=== PATIENT | female | born 1985 | race Caucasian/White ===

== ENCOUNTER 2016-11-22 01:02 | Inpatient (IN) ==
[2016-11-22 01:28] LABS: Bilirubin,Urine Negative (Negative); Blood,Urine Negative (Negative); Clarity,Urine Cloudy (Clear); Color,Urine Yellow (Yellow); Glucose,Urine (UA) Normal (Normal); Ketones,Urine Negative (Negative); Leukocyte Esterase,Urine Negative (Negative); Nitrite,Urine Negative (Negative); Protein,Urine Negative (Neg-Trace); Specific Gravity,Urine 1.028 (1.010-1.025); Urobilinogen,Urine Normal (Normal)
[2016-11-22 01:31] LABS: Bacteria,Urine None Seen per hpf (None-Few); Hyaline Casts,Urine None Seen per lpf (None-Few); RBC,Urine 0-3 per hpf (0-3); Squamous Epithelial Cell,Urine Many per lpf (None-Few); WBC,Urine 0-3 per hpf (0-3)
[2016-11-22 01:34] LABS: Amphetamine Screen,Urine Negative ng/mL (Cutoff=1000); Barbiturate Screen,Urine Negative ng/mL (Cutoff=200); Benzodiazepines Screen,Urine Negative ng/mL (Cutoff=200); Cannabinoid Screen,Urine Negative ng/mL (Cutoff = 50); Cocaine Screen,Urine Negative ng/mL (Cutoff= 300); Opiate Screen,Urine Negative ng/mL (Cutoff=300); Phencyclidine Screen,Urine Negative ng/mL (Cutoff=25)
[2016-11-22 01:55] LABS: Basophils # 0.1 K/mcL (0.0-0.2); Basophils % 1.2 %; Eosinophils # 0.1 K/mcL (0.0-0.6); Eosinophils % 1.8 %; Hematocrit 34.4 % (35.3-44.9); Hemoglobin 11.4 g/dL (11.5-15.4); Immature Granulocytes % 0.2 % (0-4); Lymphocytes % 33.2 %; Mean Corpuscular HGB Conc 33.1 g/dL (31.6-35.5); Mean Corpuscular Hemoglobin 29.7 pg (28.0-33.3); Mean Corpuscular Volume 89.6 fL (83.0-100.0); Mean Platelet Volume 9.5 fL (9.4-12.4); Monocytes # 0.5 K/mcL (0.0-1.3); Monocytes % 7.9 %; Neutrophils # 3.4 K/mcL (1.6-8.9); Platelet Count 169 K/mcL (140-400); Red Blood Count 3.84 M/mcL (3.82-4.97); Red Cell Distribution Width 11.5 % (11.5-14.5); Segmented Neutrophils % 55.7 %
[2016-11-22 02:11] LABS: Alanine Aminotransferase 29 Units/L (0-55); Albumin/Globulin Ratio 1.4 (1.1-2.2); Alkaline Phosphatase 106 Units/L (38-126); Aspartate Amino Transferase 28 Units/L (5-34); BUN/Creatinine Ratio 18 (6-26); Bilirubin,Direct 0.1 mg/dL (0.0-0.5); Bilirubin,Total 0.1 mg/dL (0.2-1.2); Blood Urea Nitrogen 19 mg/dL (7-20); Calcium 9.4 mg/dL (8.6-10.8); Carbon Dioxide 27 mEq/L (19-29); Chloride 107 mEq/L (98-109); Globulin 2.8 g/dL (2.4-3.5); Glucose 86 mg/dL (70-99); Osmolality,Calculated 294 (280-300); Sodium 141 mEq/L (136-145); Total Protein 6.8 g/dL (6.0-8.3); eGFR For African Americans > 60 (> 60); eGFR For Non-African Americans > 60 (> 60)
[2016-11-22 02:13] LABS: Acetaminophen < 1.0 mcg/mL (10-30); Ethanol < 10 mg/dL (0-10); Salicylate < 5.0 mg/dL (15-30)
[2016-11-22 02:31] LABS: Thyroid Stimulating Hormone 2.934 mcIU/mL (0.350-4.840)
--- NOTE | 2016-11-22 03:30 | Emergency Department Note ---
Disposition Clinical Impression: Suicidal ideation Disposition: Admitted As Inpatient Condition: Good Time of Disposition: 04:51 Psych HPI - General Chief Complaint: ED Psychiatric Symptoms Stated Complaint: SI/HI Source: patient Nursing Notes Reviewed: Yes Vital Signs Reviewed: Yes - History of Present Illness HPI Narrative: 31yoF c/o of worsening SI and depression. She describes this has been going on for quite sometime, worsening today. She states she has been seen in [facility] but states no one there wants to help her. She describes attempting to kill herself while a patient at [facility] by strangling herself with the wire from the pulse ox monitor. She was a pt of Dr. Medrano but in the past month has see Marylin Ewing in [facility] and has recently been put on Risperdal. She admits to non compliance of her medications. She denies HI, audiotroy or visual hallucinations, etoh, or drug use. - Related Data Home Medications Medication Instructions Recorded Confirmed Omeprazole [PriLOSEC] 40 mg PO DAILY 04/15/16 11/22/16 Paroxetine HCl 30 mg PO DAILY 04/15/16 11/22/16 Polyethylene Glycol 3350 [MiraLAX] 17 gm PO DAILY 04/15/16 11/22/16 Epitol 200 mg PO BID 11/22/16 HydrOXYzine Pamoate [Vistaril] 50 mg PO QID 11/22/16 11/22/16 LevETIRAcetam [Levetiracetam] 500 mg PO BID 11/22/16 11/22/16 RisperiDONE [RisperDAL] 1 mg PO DAILY 11/22/16 11/22/16 Trospium Chloride 20 mg PO BID 11/22/16 11/22/16 Allergies Allergy/AdvReac Type Severity Reaction Status Date / Time No Known Allergies Allergy Verified 07/13/16 14:29 All systems ED: reviewed and negative except as stated. Constitutional: Denies: fever, chills Respiratory: Denies: cough, dyspnea Gastrointestinal: Denies: abdominal pain, nausea, vomiting Genitourinary: Denies: dysuria Musculoskeletal: Denies: back pain Integumentary: Denies: rash Neurological: Denies: headache Psychiatric: Reports: depression, suicidal thoughts. Denies: auditory hallucinations, visual hallucinations Endocrine: Denies: fatigue Hematological/Lymphatic: Denies: easy bleeding Allergic/Immunologic: Denies: facial swelling Past Medical History - Past Medical History Medical history: Reports: seizures Psychiatric history: Reports: anxiety, bipolar, depression, panic disorder CUSTODIAL MANAGER history: Reports: bilateral tubal ligation - Social History Smoking Status: Former smoker Smokeless Tobacco Status: No Alcohol use: Reports: rarely Drug use: Reports: none Physical Exam - General Limitations: no limitations General appearance: alert, in no apparent distress, anxious - Head Head exam: normal inspection - Eye Eye exam: Absent: conjunctival injection, periorbital swelling, periorbital tenderness - ENT ENT exam: normal oropharynx, mucous membranes moist, normal external ear exam - Neck Neck exam: Present: full ROM. Absent: tenderness - Chest Chest inspection: Present: symmetric chest wall rise - Respiratory Respiratory exam: Absent: respiratory distress - Cardiovascular Cardiovascular exam: Present: regular rate, normal rhythm - Abdominal Exam Abdominal exam: Present: soft, Non-Tender - Extremities Exam Extremities exam: Present: normal inspection, full ROM, normal capillary refill - Back Exam Back exam: Present: full ROM - Neurological Exam Neurological exam: Present: alert, oriented X3 - Psychiatric Psychiatric exam: Present: normal affect, depressed, anxious, suicidal ideation - Skin Skin exam: Present: warm, dry, intact, normal color. Absent: rash, cyanosis, diaphoresis Course Course Narrative: Pt presents with SI and PmHx of psychiatric illness. Pt admits to non compliance with medications. In the past month she had a visit with a new psychiatrist after her previous relocated. Pt seen and examine. Vitals within limits. On exam, no acute distress, does not look toxic. Alert and oriented x3. No abd tenderness, full ROM of extremities. Lungs CTA. No evidence of trauma or injuries. Work up ordered for med clearance for 1a evaluation. - Reevaluation(s) Reevaluation #1: Work up unremarkable. Pt cleared for 1a evaluation. Time: 02:45 Vital Signs Temperature 97.6 F 11/22/16 01:04 Pulse Rate 76 11/22/16 01:04 Respiratory Rate 16 11/22/16 01:04 Blood Pressure 99/64 11/22/16 01:04 O2 Sat by Pulse Oximetry 97 11/22/16 01:04 Temperature 97.6 F 11/22/16 01:04 Pulse Rate 76 11/22/16 01:04 Respiratory Rate 0 11/22/16 04:46 Blood Pressure 0/0 11/22/16 04:46 O2 Sat by Pulse Oximetry 97 11/22/16 01:04 Oxygen Delivery Oxygen Delivery Room Air Psych - MDM Narrative Medical decision making narrative: Patient was medically cleared and accepted by [facility] staff. Patient was pink slipped. Patient stable resting In bed. - Lab Data Result diagrams: 11/22/16 01:41 11/22/16 01:41 Lab Results 11/22/16 11/22/16 11/22/16 Range/Units 01: 01:17 01:41 WBC 6.1 (4.3-11.1) K/mcL RBC 3.84 (3.82-4.97) M/mcL Hgb 11.4 L (11.5-15.4) g/dL Hct 34.4 L (35.3-44.9) % MCV 89.6 (83.0-100.0) fL MCH 29.7 (28.0-33.3) pg MCHC 33.1 (31.6-35.5) g/dL RDW 11.5 (11.5-14.5) % Plt Count 169 (140-400) K/mcL MPV 9.5 (9.4-12.4) fL Immature Gran % 0.2 (0-4) % Seg Neutrophils % 55.7 % Lymphocytes % 33.2 % Monocytes % 7.9 % Eosinophils % 1.8 % Basophils % 1.2 % Neutrophils # 3.4 (1.6-8.9) K/mcL Lymphocytes # 2.0 (0.6-4.6) K/mcL Monocytes # 0.5 (0.0-1.3) K/mcL Eosinophils # 0.1 (0.0-0.6) K/mcL Basophils # 0.1 (0.0-0.2) K/mcL Sodium (136-145) mEq/L Potassium (3.5-4.5) mEq/L Chloride (98-109) mEq/L Carbon Dioxide (19-29) mEq/L BUN (7-20) mg/dL Creatinine (0.57-1.11) mg/dL Est GFR ( Amer) (> 60) Est GFR (Non-Af Amer) (> 60) BUN/Creatinine Ratio (6-26) Glucose (70-99) mg/dL Calculated Osmolality (280-300) Calcium (8.6-10.8) mg/dL Total Bilirubin (0.2-1.2) mg/dL Direct Bilirubin (0.0-0.5) mg/dL Indirect Bilirubin (0.0-1.2) mg/dL AST (5-34) Units/L ALT (0-55) Units/L Alkaline Phosphatase (38-126) Units/L Serum Total Protein (6.0-8.3) g/dL Albumin (3.5-5.0) g/dL Globulin (2.4-3.5) g/dL Albumin/Globulin Ratio (1.1-2.2) TSH (0.350-4.840) mcIU/mL Serum , Qual (Negative) Urine Color Yellow (Yellow) Urine Clarity Cloudy A (Clear) Urine pH 7.0 (5.0-8.0) pH Units Ur Specific [place] 1.028 H (1.010-1.025) Urine Protein Negative (Neg-Trace) mg/dL Urine Glucose (UA) Normal (Normal) mg/dL Urine Ketones Negative (Negative) mg/dL Urine Blood Negative (Negative) Urine Nitrite Negative (Negative) Urine Bilirubin Negative (Negative) Urine Urobilinogen Normal (Normal) mg/dL Ur Leukocyte Esterase Negative (Negative) Urine Microscopic RBC 0-3 (0-3) per hpf Urine Microscopic WBC 0-3 (0-3) per hpf Ur Squamous Epith Cells Many H (None-Few) per lpf Urine Bacteria None Seen (None-Few) per hpf Hyaline Casts None Seen (None-Few) per lpf Salicylates (15-30) mg/dL Urine Opiates Screen Negative (Telclc=295) ng/mL Acetaminophen (10-30) mcg/mL Ur Barbiturates Screen Negative (Zjjozo=658) ng/mL Ur Phencyclidine Scrn Negative (Cutoff=25) ng/mL Ur Amphetamines Screen Negative (Lseehb=3357) ng/mL U Benzodiazepines Scrn Negative (Qoctyf=596) ng/mL Urine Cocaine Screen Negative (Cutoff= 300) ng/mL U Marijuana (THC) Screen Negative (Cutoff = 50) ng/mL Ethyl Alcohol (0-10) mg/dL 11/22/16 11/22/16 Range/Units 01:41 01:41 WBC (4.3-11.1) K/mcL RBC (3.82-4.97) M/mcL Hgb (11.5-15.4) g/dL Hct (35.3-44.9) % MCV (83.0-100.0) fL MCH (28.0-33.3) pg MCHC (31.6-35.5) g/dL RDW (11.5-14.5) % Plt Count (140-400) K/mcL MPV (9.4-12.4) fL Immature Gran % (0-4) % Seg Neutrophils % % Lymphocytes % % Monocytes % % Eosinophils % % Basophils % % Neutrophils # (1.6-8.9) K/mcL Lymphocytes # (0.6-4.6) K/mcL Monocytes # (0.0-1.3) K/mcL Eosinophils # (0.0-0.6) K/mcL Basophils # (0.0-0.2) K/mcL Sodium 141 (136-145) mEq/L Potassium 4.0 (3.5-4.5) mEq/L Chloride 107 (98-109) mEq/L Carbon Dioxide 27 (19-29) mEq/L BUN 19 (7-20) mg/dL Creatinine 1.06 (0.57-1.11) mg/dL Est GFR ( Amer) > 60 (> 60) Est GFR (Non-Af Amer) > 60 (> 60) BUN/Creatinine Ratio 18 (6-26) Glucose 86 (70-99) mg/dL Calculated Osmolality 294 (280-300) Calcium 9.4 (8.6-10.8) mg/dL Total Bilirubin 0.1 L (0.2-1.2) mg/dL Direct Bilirubin 0.1 (0.0-0.5) mg/dL Indirect Bilirubin 0.0 (0.0-1.2) mg/dL AST 28 (5-34) Units/L ALT 29 (0-55) Units/L Alkaline Phosphatase 106 (38-126) Units/L Serum Total Protein 6.8 (6.0-8.3) g/dL Albumin 4.0 (3.5-5.0) g/dL Globulin 2.8 (2.4-3.5) g/dL Albumin/Globulin Ratio 1.4 (1.1-2.2) TSH 2.934 (0.350-4.840) mcIU/mL Serum , Qual Negative (Negative) Urine Color (Yellow) Urine Clarity (Clear) Urine pH (5.0-8.0) pH Units Ur Specific [place] (1.010-1.025) Urine Protein (Neg-Trace) mg/dL Urine Glucose (UA) (Normal) mg/dL Urine Ketones (Negative) mg/dL Urine Blood (Negative) Urine Nitrite (Negative) Urine Bilirubin (Negative) Urine Urobilinogen (Normal) mg/dL Ur Leukocyte Esterase (Negative) Urine Microscopic RBC (0-3) per hpf Urine Microscopic WBC (0-3) per hpf Ur Squamous Epith Cells (None-Few) per lpf Urine Bacteria (None-Few) per hpf Hyaline Casts (None-Few) per lpf Salicylates < 5.0 L (15-30) mg/dL Urine Opiates Screen (Ckbbax=675) ng/mL Acetaminophen < 1.0 L (10-30) mcg/mL Ur Barbiturates Screen (Zikjpt=271) ng/mL Ur Phencyclidine Scrn (Cutoff=25) ng/mL Ur Amphetamines Screen (Mgeigo=7426) ng/mL U Benzodiazepines Scrn (Wzlqnz=498) ng/mL Urine Cocaine Screen (Cutoff= 300) ng/mL U Marijuana (THC) Screen (Cutoff = 50) ng/mL Ethyl Alcohol < 10 (0-10) mg/dL Psychiatric Medical Clearance - Medical Clearance Checklist Medical History: No Social History Section defined Current Vitals: Last Vital Signs Temp 97.6 F 11/22/16 01:04 Pulse 76 11/22/16 01:04 Resp 0 11/22/16 04:46 BP 0/0 11/22/16 04:46 Pulse Ox 97 11/22/16 01:04 Psychiatric Lab Panel: Drug Levels and Toxicity 11/22/16 11/22/16 01:17 01:41 Urine Opiates Screen Negative Acetaminophen < 1.0 L Ur Barbiturates Screen Negative Ur Phencyclidine Scrn Negative Ur Amphetamines Screen Negative U Benzodiazepines Scrn Negative Urine Cocaine Screen Negative U Marijuana (THC) Screen Negative Ethyl Alcohol < 10 Abnormal Labs: Abnormal lab results Hgb 11.4 g/dL (11.5-15.4) L 11/22/16 01:41 Hct 34.4 % (35.3-44.9) L 11/22/16 01:41 Total Bilirubin 0.1 mg/dL (0.2-1.2) L 11/22/16 01:41 Urine Clarity Cloudy (Clear) A 11/22/16 01:17 Ur Specific [place] 1.028 (1.010-1.025) H 11/22/16 01:17 Ur Squamous Epith Cells Many per lpf (None-Few) H 11/22/16 01:17 Salicylates < 5.0 mg/dL (15-30) L 11/22/16 01:41 Acetaminophen < 1.0 mcg/mL (10-30) L 11/22/16 01:41 Attestation Statement - Attestation Attestation: I, Sven Rodriguez MD, personally performed a history and physical exam of the patient and discussed their management with the midlevel provicer, PAC/STRUCTURAL IRON WORKER. I reviewed the midlevel provider's note and agree with the documented findings, medical decision making, and plan of care. 31-year-old female with previous psychiatric history presents complaining of increased depression and suicidal ideation. On examination patient is a well-developed female in no acute distress. She is alert and oriented 3. There is no cyanosis or diaphoresis Labs reviewed. Patient was evaluated by the 1A psych service and is being admitted to the hospital here.
[2016-11-22] MEDS ORDERED: Mag Hydrox/Al Hydrox/Simeth 30 ML UDC PO PRN (05:59)
[2016-11-22] MEDS ORDERED: Haloperidol Lactate 5 MG/ML VIAL IM PRN (05:59)
[2016-11-22] MEDS ORDERED: *HR* LORazepam 1 MG TABLET PO PRN (05:59)
[2016-11-22] MEDS ORDERED: *HR* LORazepam 2 MG/ML VIAL IM PRN (05:59)
[2016-11-22] MEDS ORDERED: MOM Conc 10 ML UD.LIQ PO PRN (05:59)
[2016-11-22] MEDS ORDERED: hydrOXYzine pamoate 25 MG CAPSULE PO PRN ×2 (05:59→10:11)
[2016-11-22] MEDS ORDERED: risperiDONE 1 MG TABLET PO SCH (10:15)
[2016-11-22] MEDS: levETIRAcetam 250 MG TABLET PO SCH ×2 (11:11→21:22)
[2016-11-22] MEDS: carBAMazepine 200 MG TABLET PO SCH ×2 (11:12→21:23)
--- NOTE | 2016-11-22 11:18 | Psychiatry History & Physical ---
Date of Encounter: 11/23/16 Time of Encounter: 11:13 History of Present Illness Patient Stated Chief Complaint: Depression and suicidal ideation Medicare Admission Attestation: For traditional Medicare patients the provided hospital inpatient services are reasonable and necessary and in the case of services not specified as inpatient -only under 42 CFR 419.22 (n), that they are appropriately provided as inpatient services in accordance 42 CFR 412.3. For Critical Access Hospital the patient may reasonably be expected to be discharged or transferred to a hospital within 96 hours after admission to the Critical Access Hospital. Admitted From: Emergency Dept History of Present Illness: Ms. David is a 31 year old female admitted from the emergency department for evaluation and treatment of depression and suicidal ideation. Patient reports feeling hopeless and helpless and had several plans to kill herself by overdosing or running into traffic and also expressed homicidal ideation and stated that she has surgery different personalities and one of them is ""mean". Patient states she was seen in this hospital last year and was placed on medication by psychiatrist will later left and she was seen by another physician to continue her medications. She told me she has history of seizure but she has not had any for the last 2 years. Also she has history of lower intellectual functioning she graduated from high school. Patient does not smoke cigarettes occasionally she will smoke marijuana she denied any use of alcohol or any other drugs. Past Med Surg Social Fam HX - Past Medical History Medical history: seizures - Past Psychiatric History Psychiatric history: Reports: anxiety, depression Family psychiatric history: Unknown Family History of Suicide: Unknown - Social History Smoking Status: Former smoker Smokeless Tobacco Status: No Alcohol use: rarely Drug use: none Medications & Allergies Omeprazole [PriLOSEC] 40 mg PO DAILY 04/15/16 [History] Paroxetine HCl 30 mg PO DAILY 04/15/16 [History] Polyethylene Glycol 3350 [MiraLAX] 17 gm PO DAILY 04/15/16 [History] CarBAMazepine [Tegretol] 200 mg PO BID 11/22/16 [History] HydrOXYzine Pamoate [Vistaril] 50 mg PO QID PRN 11/22/16 [History] LevETIRAcetam [Levetiracetam] 500 mg PO BID 11/22/16 [History] RisperiDONE [RisperDAL] 1 mg PO HS 11/22/16 [History] Trospium Chloride 20 mg PO BID 11/22/16 [History] Allergies No Known Allergies Allergy (Verified 07/13/16 14:29) Review of Systems Psychiatric: Reports: depression, anxiety, suicidal ideation, hopelessness Mental Status Exam Patient orientation: Yes Person, Yes Time, Yes Place Level of alertness: Alert Patient appearance: Appropriate, Unkempt, Bizarre, Thin Behavior: calm, cooperative, impulsive, dramatic Psychomotor activity: Normal Eye contact: Fleeting Contact Mood description: Depressed, Anxious, Labile Affect description: congruent with mood, labile, constricted Speech pattern: Normal rate, Normal rhythm, Normal tone, Monotone Speech volume: Soft/Quiet Thought process: Linear, Goal Oriented Thought content: No Suicidal ideation, No Homicidal ideation, No Overt delusions Perceptual disturbances: No Auditory hallucinations, No Visual hallucinations Attention span: Unable to Sustain Attention Memory description: Grossly Intact Patient reliability: Questionable Historian Intelligence estimate: Below Average Judgment: Limited Insight: Partial Results - Vital Signs Vital signs: Temp Pulse Resp BP Pulse Ox 98.4 F 77 16 89/61 97 11/22/16 09:00 11/22/16 09:00 11/22/16 09:00 11/22/16 09:00 11/22/16 01:04 - Labs Labs: Laboratory Last Values WBC 6.1 K/mcL (4.3-11.1) 11/22/16 01:41 RBC 3.84 M/mcL (3.82-4.97) 11/22/16 01:41 Hgb 11.4 g/dL (11.5-15.4) L 11/22/16 01:41 Hct 34.4 % (35.3-44.9) L 11/22/16 01:41 MCV 89.6 fL (83.0-100.0) 11/22/16 01:41 MCH 29.7 pg (28.0-33.3) 11/22/16 01:41 MCHC 33.1 g/dL (31.6-35.5) 11/22/16 01:41 RDW 11.5 % (11.5-14.5) 11/22/16 01:41 Plt Count 169 K/mcL (140-400) 11/22/16 01:41 MPV 9.5 fL (9.4-12.4) 11/22/16 01:41 Immature Gran % 0.2 % (0-4) 11/22/16 01:41 Seg Neutrophils % 55.7 % 11/22/16 01:41 Lymphocytes % 33.2 % 11/22/16 01:41 Monocytes % 7.9 % 11/22/16 01:41 Eosinophils % 1.8 % 11/22/16 01:41 Basophils % 1.2 % 11/22/16 01:41 Neutrophils # 3.4 K/mcL (1.6-8.9) 11/22/16 01:41 Lymphocytes # 2.0 K/mcL (0.6-4.6) 11/22/16 01:41 Monocytes # 0.5 K/mcL (0.0-1.3) 11/22/16 01:41 Eosinophils # 0.1 K/mcL (0.0-0.6) 11/22/16 01:41 Basophils # 0.1 K/mcL (0.0-0.2) 11/22/16 01:41 Sodium 141 mEq/L (136-145) 11/22/16 01:41 Potassium 4.0 mEq/L (3.5-4.5) 11/22/16 01:41 Chloride 107 mEq/L (98-109) 11/22/16 01:41 Carbon Dioxide 27 mEq/L (19-29) 11/22/16 01:41 BUN 19 mg/dL (7-20) 11/22/16 01:41 Creatinine 1.06 mg/dL (0.57-1.11) 11/22/16 01:41 Est GFR ( Amer) > 60 (> 60) 11/22/16 01:41 Est GFR (Non-Af Amer) > 60 (> 60) 11/22/16 01:41 BUN/Creatinine Ratio 18 (6-26) 11/22/16 01:41 Glucose 86 mg/dL (70-99) 11/22/16 01:41 Calculated Osmolality 294 (280-300) 11/22/16 01:41 Calcium 9.4 mg/dL (8.6-10.8) 11/22/16 01:41 Total Bilirubin 0.1 mg/dL (0.2-1.2) L 11/22/16 01:41 Direct Bilirubin 0.1 mg/dL (0.0-0.5) 11/22/16 01:41 Indirect Bilirubin 0.0 mg/dL (0.0-1.2) 11/22/16 01:41 AST 28 Units/L (5-34) 11/22/16 01:41 ALT 29 Units/L (0-55) 11/22/16 01:41 Alkaline Phosphatase 106 Units/L (38-126) 11/22/16 01:41 Serum Total Protein 6.8 g/dL (6.0-8.3) 11/22/16 01:41 Albumin 4.0 g/dL (3.5-5.0) 11/22/16 01:41 Globulin 2.8 g/dL (2.4-3.5) 11/22/16 01:41 Albumin/Globulin Ratio 1.4 (1.1-2.2) 11/22/16 01:41 TSH 2.934 mcIU/mL (0.350-4.840) 11/22/16 01:41 Serum , Qual Negative (Negative) 11/22/16 01:41 Urine Color Yellow (Yellow) 11/22/16 01:17 Urine Clarity Cloudy (Clear) A 11/22/16 01:17 Urine pH 7.0 pH Units (5.0-8.0) 11/22/16 01:17 Ur Specific [place] 1.028 (1.010-1.025) H 11/22/16 01:17 Urine Protein Negative mg/dL (Neg-Trace) 11/22/16 01:17 Urine Glucose (UA) Normal mg/dL (Normal) 11/22/16 01:17 Urine Ketones Negative mg/dL (Negative) 11/22/16 01:17 Urine Blood Negative (Negative) 11/22/16 01:17 Urine Nitrite Negative (Negative) 11/22/16 01:17 Urine Bilirubin Negative (Negative) 11/22/16 01:17 Urine Urobilinogen Normal mg/dL (Normal) 11/22/16 01:17 Ur Leukocyte Esterase Negative (Negative) 11/22/16 01:17 Urine Microscopic RBC 0-3 per hpf (0-3) 11/22/16 01:17 Urine Microscopic WBC 0-3 per hpf (0-3) 11/22/16 01:17 Ur Squamous Epith Cells Many per lpf (None-Few) H 11/22/16 01:17 Urine Bacteria None Seen per hpf (None-Few) 11/22/16 01:17 Hyaline Casts None Seen per lpf (None-Few) 11/22/16 01:17 Salicylates < 5.0 mg/dL (15-30) L 11/22/16 01:41 Urine Opiates Screen Negative ng/mL (Rxvzbw=812) 11/22/16 01:17 Acetaminophen < 1.0 mcg/mL (10-30) L 11/22/16 01:41 Ur Barbiturates Screen Negative ng/mL (Wazrjq=147) 11/22/16 01:17 Ur Phencyclidine Scrn Negative ng/mL (Cutoff=25) 11/22/16 01:17 Ur Amphetamines Screen Negative ng/mL (Umwcgp=7394) 11/22/16 01:17 U Benzodiazepines Scrn Negative ng/mL (Jgmfhp=287) 11/22/16 01:17 Urine Cocaine Screen Negative ng/mL (Cutoff= 300) 11/22/16 01:17 U Marijuana (THC) Screen Negative ng/mL (Cutoff = 50) 11/22/16 01:17 Ethyl Alcohol < 10 mg/dL (0-10) 11/22/16 01:41 Assessment and Plan (1) Depression, major, recurrent, severe with psychosis Current visit: Yes Status: Acute Plan: Admit inpatient for safety and stabilization, Close observation, Suicide Precautions per unit protocol, Encourage participation in unit milieu, Group Therapy, Monitor sleep, Monitor appetite Additional Plan: We will review medications and will report Tegretol level. Risks, benefits, side effects, alternatives discussed w/pt: Yes Patient agreeable to treatment: Yes
[2016-11-22] MEDS: risperiDONE 1 MG TABLET PO SCH (21:22)
[2016-11-22] MEDS: traZODone 50 MG TABLET PO PRN (22:58)
[2016-11-23] MEDS: levETIRAcetam 250 MG TABLET PO SCH ×2 (09:27→21:21)
[2016-11-23] MEDS: carBAMazepine 200 MG TABLET PO SCH ×2 (09:27→21:21)
--- NOTE | 2016-11-23 14:55 | Psychiatry Progress Note ---
Date of Encounter: 11/23/16 Time of Encounter: 14:51 Subjective Interval history: Patient seen for follow-up. Staff reported she continue to endorse suicidal and homicidal ideation with plan to shoot herself. She is participating and activities and groups. She is taking medication her Tegretol level is 4.9 which is low therapeutic. Patient continued to express frustration because of her loneliness and inability to achieve. When I asked her what is it that she wants to achieve she answered "it is I wanted be happy". Patient displayed low level intellectual functioning and concrete thinking due to her disability Review of Systems Psychiatric: Reports: depression, anxiety, suicidal ideation, hopelessness Objective: Exam Patient orientation: Yes Person, Yes Time, Yes Place Level of alertness: Alert Patient appearance: Appropriate, Unkempt, Bizarre, Thin Behavior: calm, cooperative, impulsive, dramatic Psychomotor activity: Normal Eye contact: Fleeting Contact Mood description: Depressed, Anxious, Labile Affect description: congruent with mood, labile, constricted Speech pattern: Normal rate, Normal rhythm, Normal tone, Monotone Speech volume: Soft/Quiet Thought process: Linear, Goal Oriented Thought content: Yes Suicidal ideation, Yes Homicidal ideation, No Overt delusions Perceptual disturbances: No Auditory hallucinations, No Visual hallucinations Judgment: Limited Insight: Partial Results - Vital Signs Vital Signs: Temp Pulse Resp BP Pulse Ox 98.1 F 72 16 87/62 97 11/23/16 09:00 11/23/16 09:00 11/23/16 09:00 11/23/16 09:00 11/22/16 01:04 Assessment and Plan (1) Depression, major, recurrent, severe with psychosis Current visit: Yes Status: Acute Plan: Continue hospitalization, Close observation, Suicide Precautions per unit protocol, Encourage participation in unit milieu, Group Therapy, Monitor sleep, Monitor appetite Risks, benefits, side effects, alternatives discussed w/pt: Yes Patient agreeable to treatment: Yes Consult Discharge Plan - Plan Referrals: NO,PCP [Primary Care Provider] -
[2016-11-23] MEDS: risperiDONE 1 MG TABLET PO SCH (21:20)
[2016-11-23] MEDS: Acetaminophen 325 MG TABLET PO PRN (21:20)
[2016-11-23] MEDS: traZODone 50 MG TABLET PO PRN (21:21)
[2016-11-24] MEDS: levETIRAcetam 250 MG TABLET PO SCH ×2 (10:09→20:20)
[2016-11-24] MEDS: carBAMazepine 200 MG TABLET PO SCH ×2 (10:09→20:21)
--- NOTE | 2016-11-24 15:14 | Psychiatry Progress Note ---
Date of Encounter: 11/24/16 Time of Encounter: 14:30 Subjective Interval history: Patient is here for follow-up. Staff reported that she is taking medication and attended groups. She continued to endorse suicidal ideation and showed me drawings related to suicidal thoughts. She was able to clearly a conversation about family and sister and her need to be with people, she is more interested in activities and medical social worker is trying to place her in a program that offered the services. She denies any problem with sleep or appetite. She started her medication without any side effects. Review of Systems Psychiatric: Reports: depression, anxiety, suicidal ideation, hopelessness Objective: Exam Patient orientation: Yes Person, Yes Time, Yes Place Level of alertness: Alert Patient appearance: Appropriate, Unkempt, Bizarre, Thin Behavior: calm, cooperative, impulsive, dramatic Psychomotor activity: Normal Eye contact: Fleeting Contact Mood description: Depressed, Anxious, Labile Affect description: congruent with mood, labile, constricted Speech pattern: Normal rate, Normal rhythm, Normal tone, Monotone Speech volume: Soft/Quiet Thought process: Linear, Goal Oriented Thought content: Yes Suicidal ideation, Yes Homicidal ideation, No Overt delusions Perceptual disturbances: No Auditory hallucinations, No Visual hallucinations Judgment: Limited Insight: Partial Results - Vital Signs Vital Signs: Temp Pulse Resp BP Pulse Ox 97.8 F 76 16 92/60 97 11/24/16 09:00 11/24/16 09:00 11/24/16 09:00 11/24/16 09:00 11/22/16 01:04 Assessment and Plan (1) Depression, major, recurrent, severe with psychosis Current visit: Yes Status: Acute Plan: Continue hospitalization, Close observation, Suicide Precautions per unit protocol, Encourage participation in unit milieu, Group Therapy, Monitor sleep, Monitor appetite Risks, benefits, side effects, alternatives discussed w/pt: Yes Patient agreeable to treatment: Yes Consult Discharge Plan - Plan Referrals: NO,PCP [Primary Care Provider] -
[2016-11-24] MEDS: Mirtazapine 15 MG TABLET PO SCH (20:19)
[2016-11-24] MEDS: risperiDONE 1 MG TABLET PO SCH (20:20)
[2016-11-25] MEDS: carBAMazepine 200 MG TABLET PO SCH ×2 (09:17→21:01)
[2016-11-25] MEDS: levETIRAcetam 250 MG TABLET PO SCH ×2 (09:17→21:00)
--- NOTE | 2016-11-25 14:26 | Psychiatry Progress Note ---
Date of Encounter: 11/25/16 Time of Encounter: 13:20 Subjective Interval history: Patient seen for follow-up. Still she is staying busy by coloring and participating in groups she is reported to sleep better last minute after adding mirtazapine. She reports still having suicidal thoughts on and off not as intense and she is trying to distract herself from the thoughts. open hearth worker is trying to place her into respite for a few days before going home and discharge planning is ongoing. Patient denies any side effects to medication and reports good appetite and sleep. Review of Systems Psychiatric: Reports: depression, anxiety, suicidal ideation, hopelessness Objective: Exam Patient orientation: Yes Person, Yes Time, Yes Place Level of alertness: Alert Patient appearance: Appropriate, Unkempt, Bizarre, Thin Behavior: calm, cooperative, impulsive, dramatic Psychomotor activity: Normal Eye contact: Fleeting Contact Mood description: Depressed, Anxious, Labile Affect description: congruent with mood, labile, constricted Speech pattern: Normal rate, Normal rhythm, Normal tone, Monotone Speech volume: Soft/Quiet Thought process: Linear, Goal Oriented Thought content: Yes Suicidal ideation, No Overt delusions Perceptual disturbances: No Auditory hallucinations, No Visual hallucinations Judgment: Limited Insight: Partial Results - Vital Signs Vital Signs: Temp Pulse Resp BP Pulse Ox 98.6 F 84 20 96/67 97 11/25/16 09:00 11/25/16 09:00 11/25/16 09:00 11/25/16 09:00 11/22/16 01:04 Assessment and Plan (1) Depression, major, recurrent, severe with psychosis Current visit: Yes Status: Acute Plan: Continue hospitalization, Close observation, Suicide Precautions per unit protocol, Encourage participation in unit milieu, Group Therapy, Monitor sleep, Monitor appetite Risks, benefits, side effects, alternatives discussed w/pt: Yes Patient agreeable to treatment: Yes Consult Discharge Plan - Plan Referrals: Uli Hernandez [facility] [place] [facility] - 12/02/16 10:40 am (The above appointment is with Marylin Ewing, psychiatric prescriber. You will also see Marissa Herrera, counselor/rehabilitation case coordinator, on 12/11/2016 at 1:00pm. You will resume groups on Wednesdays and Fridays as well.)
[2016-11-25] MEDS: Acetaminophen 325 MG TABLET PO PRN (19:53)
[2016-11-25] MEDS: risperiDONE 1 MG TABLET PO SCH (21:00)
[2016-11-25] MEDS: Mirtazapine 15 MG TABLET PO SCH (21:01)
[2016-11-26] MEDS: carBAMazepine 200 MG TABLET PO SCH (09:03)
[2016-11-26] MEDS: levETIRAcetam 250 MG TABLET PO SCH (09:03)
[2016-11-26 09:27] VITALS: BP 100/67
--- NOTE | 2016-11-26 13:05 | Discharge Summary ---
Date of Encounter: 11/26/16 Time of Encounter: 12:55 Diagnosis - Discharge Diagnosis (1) Depression, major, recurrent, severe with psychosis Status: Acute Medications - Discharge Medications Prescriptions: CarBAMazepine [Tegretol] 200 mg PO BID #60 tablet HydrOXYzine Pamoate [Vistaril] 50 mg PO QID PRN #60 capsule PRN Reason: Anxiety LevETIRAcetam [Levetiracetam] 500 mg PO BID #60 tablet Mirtazapine [Remeron] 7.5 mg PO HS #20 tablet Omeprazole [PriLOSEC] 40 mg PO DAILY #60 capsule. Paroxetine [Paxil] 30 mg PO DAILY #30 tablet RisperiDONE [RisperDAL] 1 mg PO HS #30 tablet Polyethylene Glycol 3350 [MiraLAX] 17 gm PO DAILY 04/15/16 [History] Trospium Chloride 20 mg PO BID 11/22/16 [History] CarBAMazepine [Tegretol] 200 mg PO BID #60 tablet 11/26/16 [Rx] HydrOXYzine Pamoate [Vistaril] 50 mg PO QID PRN #60 capsule 11/26/16 [Rx] LevETIRAcetam [Levetiracetam] 500 mg PO BID #60 tablet 11/26/16 [Rx] Mirtazapine [Remeron] 7.5 mg PO HS #20 tablet 11/26/16 [Rx] Omeprazole [PriLOSEC] 40 mg PO DAILY #60 capsule. 11/26/16 [Rx] Paroxetine [Paxil] 30 mg PO DAILY #30 tablet 11/26/16 [Rx] RisperiDONE [RisperDAL] 1 mg PO HS #30 tablet 11/26/16 [Rx] Allergies No Known Allergies Allergy (Verified 07/13/16 14:29) Results Procedures and tests throughout hospitalization: Completed Lab Orders Category Date Time Status Carbamazepine (Tegretol) Routine Lab 11/22/16 11:46 Completed Provider Date of admission: 11/22/16 04:56 Primary care physician: PCP NO Discharging clinician: Ariel Coughlin Assessment and Plan - Patient/Caregiver Discharge Instructions Activity: resume usual activities as tolerated Diet: regular diet - Follow up Plan Follow up with: Uli Santiago [Outside] - 12/02/16 10:40 am (The above appointment is with Marylin Ewing, psychiatric prescriber. You will also see Marissa Herrera, counselor/skilled nursing case manager, on 12/11/2016 at 1:00pm. You will resume groups on Wednesdays and Fridays as well.) Functional capacity at discharge: independent ambulation Overall status at discharge: Stable Disposition: Home, Self-Care Hospital Course Hospital course: Ms. David is a 31 year old female admitted from the emergency room depression and suicidal ideation. For details admission please see H&P On the unit patient medications were adjusted. Recheck Tegretol level and it was therapeutic, with added mirtazapine 7.5 mg at bedtime. Patient reported improved sleep and energy she continued to endorse suicidal thoughts but reported it is less frequent and less intense. She participated in group and activities. Discharge plans were completed by neonatal social worker to discharge her to a respite where she can spend a few days before going home. Patient is agreeable and excited about this plan because she likes to be part of groups. Prior to discharge patient was medically stable, she denied any suicidal or homicidal ideation and she was excited about her discharge plans. - Time Spent with Patient Total time spent providing and/or coordinating discharge services: Less than 30 minutes Quality - Multiple Antipsychotics Patient discharged on 2 or more antipsychotic medications: No Procedures - Procedures Procedures: Medication Management, Crisis Stabilization, Supportive Therapy, Group Therapy, Psychoeducational Therapy Mental Status Exam - Mental Status Exam Patient orientation: Yes Person, Yes Time, Yes Place Level of alertness: Alert Patient appearance: Appropriate, Unkempt, Bizarre, Thin Behavior: calm, cooperative Psychomotor activity: Normal Eye contact: Maintains Eye Contact Mood description: Euthymic/stable, Anxious, Labile Affect description: congruent with mood, labile, constricted Speech pattern: Normal rate, Normal rhythm, Normal tone, Monotone Speech Volume: Soft/Quiet Thought process: Linear, Goal Oriented Thought Content: No Suicidal ideation, No Homicidal ideation, No Overt delusions Perceptual Disturbances: No Auditory hallucinations, No Visual hallucinations Judgment: Limited Insight: Partial
== END 2016-11-26 16:40 | disposition home or self-care (01) | DRG 751 ==
LOC: EMEROO 01:02 → 1ANU 04:56
PROVIDERS: ADMIT Psychiatry & Neurology Psychiatry; ATTEND Psychiatry & Neurology Psychiatry

== ENCOUNTER 2017-01-15 01:00 | Inpatient (IN) ==
[2017-01-15 01:28] LABS: Basophils # 0.1 K/mcL (0.0-0.2); Basophils % 0.8 %; Eosinophils # 0.1 K/mcL (0.0-0.6); Eosinophils % 0.8 %; Hemoglobin 12.1 g/dL (11.5-15.4); Immature Granulocytes % 0.3 % (0-4); Immature Platelets 1.8 % (1.1-6.1); Lymphocytes # 1.8 K/mcL (0.6-4.6); Mean Corpuscular HGB Conc 34.6 g/dL (31.6-35.5); Mean Corpuscular Volume 86.8 fL (83.0-100.0); Mean Platelet Volume 8.9 fL (9.4-12.4); Monocytes # 0.7 K/mcL (0.0-1.3); Monocytes % 10.1 %; Neutrophils # 4.6 K/mcL (1.6-8.9); Platelet Count 191 K/mcL (140-400); Red Blood Count 4.03 M/mcL (3.82-4.97); Red Cell Distribution Width 11.5 % (11.5-14.5)
[2017-01-15 01:37] LABS: Amphetamine Screen,Urine Negative ng/mL (Cutoff=1000); Barbiturate Screen,Urine Negative ng/mL (Cutoff=200); Benzodiazepines Screen,Urine Negative ng/mL (Cutoff=200); Cannabinoid Screen,Urine Negative ng/mL (Cutoff = 50); Cocaine Screen,Urine Negative ng/mL (Cutoff= 300); Opiate Screen,Urine Negative ng/mL (Cutoff=300); Phencyclidine Screen,Urine Negative ng/mL (Cutoff=25)
--- NOTE | 2017-01-15 01:39 | Emergency Department Note ---
Disposition Clinical Impression: Suicidal ideation Disposition: Admitted As Inpatient Condition: Good Psych HPI - General Chief Complaint: ED Psychiatric Symptoms Stated Complaint: Si Time Seen by Provider: 01/15/17 01:09 Source: patient, EMS Nursing Notes Reviewed: Yes Vital Signs Reviewed: Yes - History of Present Illness HPI Narrative: Ms. David, 31-year-old female, presents from home via EMS with suicidal intention. Patient had a plan of intentional medication overdose as well as taking a knife to slice her arms as well as seen a firearm. Prior to calling 911 herself, she had these instruments within her reach. EMS arrived to her house with police. In this department, she admits to suicidal ideation. She has written in her journal the same. She has no other complaints at this time. No homicidality. PMH: Conversion disorder, suicidal ideation ROS: Positive suicidal ideation with suicidal intent and plan Negative fever, chills, nausea, vomiting, chest pains, palpitations, back pains , abdominal pain, headache, confusion. - Related Data Home Medications Medication Instructions Recorded Confirmed HydrOXYzine Pamoate [Vistaril] 50 mg PO QID PRN 01/15/17 01/15/17 LevETIRAcetam [Keppra] 500 mg PO BID 01/15/17 01/15/17 Mirtazapine [Remeron] 7.5 mg PO HS 01/15/17 01/15/17 Omeprazole [PriLOSEC] 40 mg PO DAILY 01/15/17 01/15/17 PARoxetine HCl [Paroxetine HCl] 30 mg PO DAILY 01/15/17 01/15/17 Trospium Chloride 20 mg PO BID 01/15/17 01/15/17 carBAMazepine [Tegretol] 200 mg PO BID 01/15/17 01/15/17 risperiDONE [Risperidone] 1 mg PO HS 01/15/17 01/15/17 Allergies Allergy/AdvReac Type Severity Reaction Status Date / Time No Known Allergies Allergy Verified 07/13/16 14:29 All systems ED: reviewed and negative except as stated. Past Medical History - Past Medical History Medical history: Reports: seizures Psychiatric history: Reports: anxiety, depression, prior suicide attempt, previous psychiatric hospitalization [employer] history: Reports: bilateral tubal ligation - Social History Smoking Status: Former smoker Smokeless Tobacco Status: No Alcohol use: Reports: none Drug use: Reports: none Physical Exam Vital Signs Reviewed General: Patient is alert, oriented, and in no acute distress. HEENT: No facial asymmetry. Head is normocephalic and atraumatic. PERRLA Cardiovascular: Heart regular rate and rhythm without clicks, rubs, gallops, or murmurs. Bilateral radial posterior tibial pulses 2/4. Respiratory: Symmetric chest rise with good respiratory effort. Bilateral breath sounds are clear without wheezing, crackles, or rhonchi. Abdomen: Bowel sounds present normoactivex-4 quadrants. Abdomen is soft, nondistended, and nontender. No organomegaly noted. Psych: Has flat effect and expresses suicidality. - General Limitations: no limitations General appearance: alert, in no apparent distress Course Course Narrative: Patient has no physical complaints at this time. Patient is medically cleared for 1 evaluation. 1A has evaluated the patient; the patient and is pending placement. Patient has been signed out to the day team. Vital Signs Temperature 98.0 F 01/15/17 01:02 Pulse Rate 63 01/15/17 01:02 Respiratory Rate 18 01/15/17 01:02 Blood Pressure 107/68 01/15/17 01:02 O2 Sat by Pulse Oximetry 98 01/15/17 01:02 Temperature 99.1 F 01/15/17 18:34 Pulse Rate 73 01/15/17 18:34 Respiratory Rate 18 01/15/17 18:34 Blood Pressure 107/64 01/15/17 18:34 O2 Sat by Pulse Oximetry 98 01/15/17 12:30 Oxygen Delivery Oxygen Delivery Room Air Psych - Lab Data Result diagrams: 01/15/17 01:20 01/15/17 01:20 Lab Results 01/15/17 01/15/17 01/15/17 Range/Units 01:14 01:14 01:14 WBC (4.3-11.1) K/mcL RBC (3.82-4.97) M/mcL Hgb (11.5-15.4) g/dL Hct (35.3-44.9) % MCV (83.0-100.0) fL MCH (28.0-33.3) pg MCHC (31.6-35.5) g/dL RDW (11.5-14.5) % Plt Count (140-400) K/mcL MPV (9.4-12.4) fL Immature Gran % (0-4) % Seg Neutrophils % % Lymphocytes % % Monocytes % % Eosinophils % % Basophils % % Neutrophils # (1.6-8.9) K/mcL Lymphocytes # (0.6-4.6) K/mcL Monocytes # (0.0-1.3) K/mcL Eosinophils # (0.0-0.6) K/mcL Basophils # (0.0-0.2) K/mcL Immature Plt Fraction (1.1-6.1) % Sodium (136-145) mEq/L Potassium (3.5-4.5) mEq/L Chloride (98-109) mEq/L Carbon Dioxide (19-29) mEq/L BUN (7-20) mg/dL Creatinine (0.57-1.11) mg/dL Est GFR ( Amer) (> 60) Est GFR (Non-Af Amer) (> 60) BUN/Creatinine Ratio (6-26) Glucose (70-99) mg/dL POC Glucose (58-89) Calculated Osmolality (280-300) Calcium (8.6-10.8) mg/dL TSH (0.350-4.840) mcIU/mL Urine Color Yellow (Yellow) Urine Clarity Clear (Clear) Urine pH 6.0 (5.0-8.0) pH Units Ur Specific [place] 1.007 L (1.010-1.025) Urine Protein Negative (Neg-Trace) mg/dL Urine Glucose (UA) Normal (Normal) mg/dL Urine Ketones Negative (Negative) mg/dL Urine Blood Negative (Negative) Urine Nitrite Negative (Negative) Urine Bilirubin Negative (Negative) Urine Urobilinogen Normal (Normal) mg/dL Ur Leukocyte Esterase Negative (Negative) Urine Test Negative (Negative) Salicylates (15-30) mg/dL Urine Opiates Screen Negative (Nkesnp=782) ng/mL Acetaminophen (10-30) mcg/mL Ur Barbiturates Screen Negative (Cvxohd=781) ng/mL Ur Phencyclidine Scrn Negative (Cutoff=25) ng/mL Ur Amphetamines Screen Negative (Xqfksr=8541) ng/mL U Benzodiazepines Scrn Negative (Qtcbvg=214) ng/mL Urine Cocaine Screen Negative (Cutoff= 300) ng/mL U Marijuana (THC) Screen Negative (Cutoff = 50) ng/mL Ethyl Alcohol (0-10) mg/dL 01/15/17 01/15/17 01/15/17 Range/Units 01:20 01:20 13:52 WBC 7.2 (4.3-11.1) K/mcL RBC 4.03 (3.82-4.97) M/mcL Hgb 12.1 (11.5-15.4) g/dL Hct 35.0 L (35.3-44.9) % MCV 86.8 (83.0-100.0) fL MCH 30.0 (28.0-33.3) pg MCHC 34.6 (31.6-35.5) g/dL RDW 11.5 (11.5-14.5) % Plt Count 191 (140-400) K/mcL MPV 8.9 L (9.4-12.4) fL Immature Gran % 0.3 (0-4) % Seg Neutrophils % 63.0 % Lymphocytes % 25.0 % Monocytes % 10.1 % Eosinophils % 0.8 % Basophils % 0.8 % Neutrophils # 4.6 (1.6-8.9) K/mcL Lymphocytes # 1.8 (0.6-4.6) K/mcL Monocytes # 0.7 (0.0-1.3) K/mcL Eosinophils # 0.1 (0.0-0.6) K/mcL Basophils # 0.1 (0.0-0.2) K/mcL Immature Plt Fraction 1.8 (1.1-6.1) % Sodium 139 (136-145) mEq/L Potassium 3.4 L (3.5-4.5) mEq/L Chloride 107 (98-109) mEq/L Carbon Dioxide 22 (19-29) mEq/L BUN 13 (7-20) mg/dL Creatinine 0.77 (0.57-1.11) mg/dL Est GFR ( Amer) > 60 (> 60) Est GFR (Non-Af Amer) > 60 (> 60) BUN/Creatinine Ratio 17 (6-26) Glucose 130 H (70-99) mg/dL POC Glucose 93 H (58-89) Calculated Osmolality 290 (280-300) Calcium 9.1 (8.6-10.8) mg/dL TSH 2.215 (0.350-4.840) mcIU/mL Urine Color (Yellow) Urine Clarity (Clear) Urine pH (5.0-8.0) pH Units Ur Specific [place] (1.010-1.025) Urine Protein (Neg-Trace) mg/dL Urine Glucose (UA) (Normal) mg/dL Urine Ketones (Negative) mg/dL Urine Blood (Negative) Urine Nitrite (Negative) Urine Bilirubin (Negative) Urine Urobilinogen (Normal) mg/dL Ur Leukocyte Esterase (Negative) Urine Test (Negative) Salicylates < 5.0 L (15-30) mg/dL Urine Opiates Screen (Oujquz=098) ng/mL Acetaminophen < 1.0 L (10-30) mcg/mL Ur Barbiturates Screen (Ytuggq=497) ng/mL Ur Phencyclidine Scrn (Cutoff=25) ng/mL Ur Amphetamines Screen (Zeraul=1454) ng/mL U Benzodiazepines Scrn (Exilfr=358) ng/mL Urine Cocaine Screen (Cutoff= 300) ng/mL U Marijuana (THC) Screen (Cutoff = 50) ng/mL Ethyl Alcohol < 10 (0-10) mg/dL Psychiatric Medical Clearance - Medical Clearance Checklist Medical History: No Social History Section defined Current Vitals: Last Vital Signs Temp 99.1 F 01/15/17 18:34 Pulse 73 01/15/17 18:34 Resp 18 01/15/17 18:34 BP 107/64 01/15/17 18:34 Pulse Ox 98 01/15/17 12:30 Psychiatric Lab Panel: Drug Levels and Toxicity 01/15/17 01/15/17 01:14 01:20 Urine Opiates Screen Negative Acetaminophen < 1.0 L Ur Barbiturates Screen Negative Ur Phencyclidine Scrn Negative Ur Amphetamines Screen Negative U Benzodiazepines Scrn Negative Urine Cocaine Screen Negative U Marijuana (THC) Screen Negative Ethyl Alcohol < 10 Abnormal Labs: Abnormal lab results Hct 35.0 % (35.3-44.9) L 01/15/17 01:20 MPV 8.9 fL (9.4-12.4) L 01/15/17 01:20 Potassium 3.4 mEq/L (3.5-4.5) L 01/15/17 01:20 Glucose 130 mg/dL (70-99) H 01/15/17 01:20 POC Glucose 93 (58-89) H 01/15/17 13:52 Ur Specific [place] 1.007 (1.010-1.025) L 01/15/17 01:14 Salicylates < 5.0 mg/dL (15-30) L 01/15/17 01:20 Acetaminophen < 1.0 mcg/mL (10-30) L 01/15/17 01:20 Attestation Statement - Attestation Attestation: I, Sven Rodriguez MD, personally evaluated this patient and discussed their management with the resident physician. I reviewed the resident's note and agree with the documented findings, medical decision making, and plan of care. 31-year-old female presents to the emergency department with a complaint of suicidal thoughts. No specific plan. History of psychiatric issues and suicidal in the past. No physical complaints. On examination patient is a well-developed well-nourished well-appearing female in no acute distress. She is alert and oriented 3. There is no cyanosis or diaphoresis. Breath sounds are clear and equal bilaterally. Heart regular rate and rhythm. Abdomen is soft and nontender with normal bowel sounds. No gross focal neurological deficits. Labs reviewed and patient medically cleared for psychiatric consultation. 1A psychiatry service consulted and evaluated patient in the emergency department. Patient awaiting psychiatric bed placement. At shift change she is signed out to oncoming dayshift team, Dr. Duong and Dr. Carvajal.
[2017-01-15 01:41] LABS: BUN/Creatinine Ratio 17 (6-26); Blood Urea Nitrogen 13 mg/dL (7-20); Calcium 9.1 mg/dL (8.6-10.8); Carbon Dioxide 22 mEq/L (19-29); Chloride 107 mEq/L (98-109); Glucose 130 mg/dL (70-99); Osmolality,Calculated 290 (280-300); Potassium 3.4 mEq/L (3.5-4.5); Sodium 139 mEq/L (136-145); eGFR For African Americans > 60 (> 60); eGFR For Non-African Americans > 60 (> 60)
[2017-01-15 01:42] LABS: Acetaminophen < 1.0 mcg/mL (10-30); Ethanol < 10 mg/dL (0-10); Salicylate < 5.0 mg/dL (15-30)
[2017-01-15 01:47] LABS: Bilirubin,Urine Negative (Negative); Blood,Urine Negative (Negative); Clarity,Urine Clear (Clear); Color,Urine Yellow (Yellow); Glucose,Urine (UA) Normal (Normal); Ketones,Urine Negative (Negative); Protein,Urine Negative (Neg-Trace); Specific Gravity,Urine 1.007 (1.010-1.025)
[2017-01-15 01:48] LABS: Leukocyte Esterase,Urine Negative (Negative); Nitrite,Urine Negative (Negative); Urobilinogen,Urine Normal (Normal)
[2017-01-15 02:03] LABS: Thyroid Stimulating Hormone 2.215 mcIU/mL (0.350-4.840)
--- NOTE | 2017-01-15 07:51 | Emergency Department Note ---
Disposition Clinical Impression: Suicidal ideation Disposition: Admitted As Inpatient Condition: Good Referrals: NO,PCP [Primary Care Provider] - Forms: ED Satisfaction Letter Time of Disposition: 16:57 Psych HPI - General Chief Complaint: ED Psychiatric Symptoms Stated Complaint: Si Time Seen by Provider: 01/15/17 01:09 Source: patient, EMS - Related Data Home Medications Medication Instructions Recorded Confirmed Acetaminophen w/Cod 300-30 mg 300 mg PO Q4H PRN 01/15/17 01/15/17 [Tylenol w/Codeine #3] HydrOXYzine Pamoate [Vistaril] 50 mg PO QID PRN 01/15/17 01/15/17 Ibuprofen [Ibuprofen] 800 mg PO TID PRN 01/15/17 01/15/17 LevETIRAcetam [Keppra Xr] 500 mg PO BID 01/15/17 01/15/17 Mirtazapine [Remeron] 7.5 mg PO HS 01/15/17 01/15/17 Omeprazole [PriLOSEC] 40 mg PO DAILY 01/15/17 01/15/17 PARoxetine HCl [Paroxetine HCl] 30 mg PO DAILY 01/15/17 01/15/17 Sulfamethoxazole/Trimeth DS 800 mg PO BID 01/15/17 01/15/17 [Bactrim Ds] carBAMazepine [Tegretol] 200 mg PO BID 01/15/17 01/15/17 risperiDONE [Risperidone] 1 mg PO HS 01/15/17 01/15/17 Allergies Allergy/AdvReac Type Severity Reaction Status Date / Time No Known Allergies Allergy Verified 07/13/16 14:29 Past Medical History - Past Medical History Medical history: Reports: seizures Psychiatric history: Reports: anxiety, depression, prior suicide attempt, previous psychiatric hospitalization [employer] history: Reports: bilateral tubal ligation - Social History Smoking Status: Former smoker Smokeless Tobacco Status: No Alcohol use: Reports: none Drug use: Reports: none Physical Exam - General Limitations: no limitations General appearance: alert, in no apparent distress Course - Reevaluation(s) Reevaluation #1: Received patient in signout from Dr. Bettencourt and Dr. Rodriguez from the overnight team. Patient to be evaluated and placed by mental health team. Disposition pending. Patient has been medically cleared for suicidal ideations. Time: 07:50 Reevaluation #2: Physical bedside patient had appeared to be "seizure activity". However her eyes are looking straight ahead she looks myself and the resident responded there is just shaking activity she is able to speak. Patient does have conversion disorder. She is very anxious. We will give her 2 mg of IM Ativan. Still awaiting formal definitive placement not mental health facility. Disposition pending. Patient stable. Time: 13:56 Reevaluation #3: 5 by echo the nurse from mental health services that they discharged patient and that is opened up on the inpatient mental health service unit at [facility] [address]. [address]mission orders [address]. Patient had her dinner tray. Patient is in stable condition. Time: 16:56 Vital Signs Temperature 98.0 F 01/15/17 01:02 Pulse Rate 63 01/15/17 01:02 Respiratory Rate 18 01/15/17 01:02 Blood Pressure 107/68 01/15/17 01:02 O2 Sat by Pulse Oximetry 98 01/15/17 01:02 Temperature 97.6 F 01/15/17 12:30 Pulse Rate 70 01/15/17 12:30 Respiratory Rate 16 01/15/17 12:30 Blood Pressure 110/74 01/15/17 12:30 O2 Sat by Pulse Oximetry 98 01/15/17 12:30 Oxygen Delivery Oxygen Delivery Room Air Psych - Lab Data Result diagrams: 01/15/17 01:20 01/15/17 01:20 Lab Results 01/15/17 01/15/17 01/15/17 Range/Units 01:14 01:14 01:14 WBC (4.3-11.1) K/mcL RBC (3.82-4.97) M/mcL Hgb (11.5-15.4) g/dL Hct (35.3-44.9) % MCV (83.0-100.0) fL MCH (28.0-33.3) pg MCHC (31.6-35.5) g/dL RDW (11.5-14.5) % Plt Count (140-400) K/mcL MPV (9.4-12.4) fL Immature Gran % (0-4) % Seg Neutrophils % % Lymphocytes % % Monocytes % % Eosinophils % % Basophils % % Neutrophils # (1.6-8.9) K/mcL Lymphocytes # (0.6-4.6) K/mcL Monocytes # (0.0-1.3) K/mcL Eosinophils # (0.0-0.6) K/mcL Basophils # (0.0-0.2) K/mcL Immature Plt Fraction (1.1-6.1) % Sodium (136-145) mEq/L Potassium (3.5-4.5) mEq/L Chloride (98-109) mEq/L Carbon Dioxide (19-29) mEq/L BUN (7-20) mg/dL Creatinine (0.57-1.11) mg/dL Est GFR ( Amer) (> 60) Est GFR (Non-Af Amer) (> 60) BUN/Creatinine Ratio (6-26) Glucose (70-99) mg/dL POC Glucose (58-89) Calculated Osmolality (280-300) Calcium (8.6-10.8) mg/dL TSH (0.350-4.840) mcIU/mL Urine Color Yellow (Yellow) Urine Clarity Clear (Clear) Urine pH 6.0 (5.0-8.0) pH Units Ur Specific [place] 1.007 L (1.010-1.025) Urine Protein Negative (Neg-Trace) mg/dL Urine Glucose (UA) Normal (Normal) mg/dL Urine Ketones Negative (Negative) mg/dL Urine Blood Negative (Negative) Urine Nitrite Negative (Negative) Urine Bilirubin Negative (Negative) Urine Urobilinogen Normal (Normal) mg/dL Ur Leukocyte Esterase Negative (Negative) Urine Test Negative (Negative) Salicylates (15-30) mg/dL Urine Opiates Screen Negative (Zqymnk=680) ng/mL Acetaminophen (10-30) mcg/mL Ur Barbiturates Screen Negative (Xgykmv=960) ng/mL Ur Phencyclidine Scrn Negative (Cutoff=25) ng/mL Ur Amphetamines Screen Negative (Eepoye=9154) ng/mL U Benzodiazepines Scrn Negative (Bcfftm=769) ng/mL Urine Cocaine Screen Negative (Cutoff= 300) ng/mL U Marijuana (THC) Screen Negative (Cutoff = 50) ng/mL Ethyl Alcohol (0-10) mg/dL 01/15/17 01/15/17 01/15/17 Range/Units 01:20 01:20 13:52 WBC 7.2 (4.3-11.1) K/mcL RBC 4.03 (3.82-4.97) M/mcL Hgb 12.1 (11.5-15.4) g/dL Hct 35.0 L (35.3-44.9) % MCV 86.8 (83.0-100.0) fL MCH 30.0 (28.0-33.3) pg MCHC 34.6 (31.6-35.5) g/dL RDW 11.5 (11.5-14.5) % Plt Count 191 (140-400) K/mcL MPV 8.9 L (9.4-12.4) fL Immature Gran % 0.3 (0-4) % Seg Neutrophils % 63.0 % Lymphocytes % 25.0 % Monocytes % 10.1 % Eosinophils % 0.8 % Basophils % 0.8 % Neutrophils # 4.6 (1.6-8.9) K/mcL Lymphocytes # 1.8 (0.6-4.6) K/mcL Monocytes # 0.7 (0.0-1.3) K/mcL Eosinophils # 0.1 (0.0-0.6) K/mcL Basophils # 0.1 (0.0-0.2) K/mcL Immature Plt Fraction 1.8 (1.1-6.1) % Sodium 139 (136-145) mEq/L Potassium 3.4 L (3.5-4.5) mEq/L Chloride 107 (98-109) mEq/L Carbon Dioxide 22 (19-29) mEq/L BUN 13 (7-20) mg/dL Creatinine 0.77 (0.57-1.11) mg/dL Est GFR ( Amer) > 60 (> 60) Est GFR (Non-Af Amer) > 60 (> 60) BUN/Creatinine Ratio 17 (6-26) Glucose 130 H (70-99) mg/dL POC Glucose 93 H (58-89) Calculated Osmolality 290 (280-300) Calcium 9.1 (8.6-10.8) mg/dL TSH 2.215 (0.350-4.840) mcIU/mL Urine Color (Yellow) Urine Clarity (Clear) Urine pH (5.0-8.0) pH Units Ur Specific [place] (1.010-1.025) Urine Protein (Neg-Trace) mg/dL Urine Glucose (UA) (Normal) mg/dL Urine Ketones (Negative) mg/dL Urine Blood (Negative) Urine Nitrite (Negative) Urine Bilirubin (Negative) Urine Urobilinogen (Normal) mg/dL Ur Leukocyte Esterase (Negative) Urine Test (Negative) Salicylates < 5.0 L (15-30) mg/dL Urine Opiates Screen (Qofdcy=582) ng/mL Acetaminophen < 1.0 L (10-30) mcg/mL Ur Barbiturates Screen (Pkxqmv=319) ng/mL Ur Phencyclidine Scrn (Cutoff=25) ng/mL Ur Amphetamines Screen (Jamgsy=7402) ng/mL U Benzodiazepines Scrn (Vwylni=367) ng/mL Urine Cocaine Screen (Cutoff= 300) ng/mL U Marijuana (THC) Screen (Cutoff = 50) ng/mL Ethyl Alcohol < 10 (0-10) mg/dL Psychiatric Medical Clearance - Medical Clearance Checklist Does the patient have a NEW psychiatric condition?: No Any abnormalities indicating possible medical illness?: Yes Any history of medical issues?: No Medical History: No Social History Section defined Any abnormal vital signs prior to transfer?: No Current Vitals: Last Vital Signs Temp 97.6 F 01/15/17 12:30 Pulse 70 01/15/17 12:30 Resp 16 01/15/17 12:30 BP 110/74 01/15/17 12:30 Pulse Ox 98 01/15/17 12:30 Is the patient intoxicated or cognitively impaired?: No Psychiatric Lab Panel: Drug Levels and Toxicity 01/15/17 01/15/17 01:14 01:20 Urine Opiates Screen Negative Acetaminophen < 1.0 L Ur Barbiturates Screen Negative Ur Phencyclidine Scrn Negative Ur Amphetamines Screen Negative U Benzodiazepines Scrn Negative Urine Cocaine Screen Negative U Marijuana (THC) Screen Negative Ethyl Alcohol < 10 Any abnormalities on the physical exam?: No Any abnormal labs?: No Abnormal Labs: Abnormal lab results Hct 35.0 % (35.3-44.9) L 01/15/17 01:20 MPV 8.9 fL (9.4-12.4) L 01/15/17 01:20 Potassium 3.4 mEq/L (3.5-4.5) L 01/15/17 01:20 Glucose 130 mg/dL (70-99) H 01/15/17 01:20 POC Glucose 93 (58-89) H 01/15/17 13:52 Ur Specific [place] 1.007 (1.010-1.025) L 01/15/17 01:14 Salicylates < 5.0 mg/dL (15-30) L 01/15/17 01:20 Acetaminophen < 1.0 mcg/mL (10-30) L 01/15/17 01:20 Does the patient require durable medical equiptment?: No Is the patient ambulatory?: Yes Is the patient a fall risk?: No Has the patient been medically cleared?: Yes Any acute medical condition require Tx prior to transfer?: No Statement of Medical Clearance: I have evaluated the patient, reviewed diagnostic information, and certify that the patient's medical condition is sufficiently stable that transfer to the psychiatric unit does not pose a significant risk of deterioration.
[2017-01-15] MEDS ORDERED: *HR* LORazepam 2 MG/ML VIAL IM ONE (13:55)
[2017-01-15] MEDS ORDERED: *HR* LORazepam 1 MG TABLET PO PRN (21:16)
[2017-01-15] MEDS ORDERED: MOM Conc 10 ML UD.LIQ PO PRN (21:16)
[2017-01-15] MEDS ORDERED: Mag Hydrox/Al Hydrox/Simeth 30 ML UDC PO PRN (21:16)
[2017-01-15] MEDS ORDERED: *HR* LORazepam 2 MG/ML VIAL IM PRN (21:16)
[2017-01-15] MEDS ORDERED: hydrOXYzine pamoate 25 MG CAPSULE PO PRN (21:16)
[2017-01-15] MEDS ORDERED: Haloperidol Lactate 5 MG/ML VIAL IM PRN (21:16)
[2017-01-15] MEDS: carBAMazepine 200 MG TABLET PO SCH (21:46)
[2017-01-15] MEDS: levETIRAcetam 250 MG TABLET PO SCH (21:47)
[2017-01-15] MEDS: Mirtazapine 15 MG TABLET PO SCH (21:47)
[2017-01-15] MEDS: hydrOXYzine pamoate 25 MG CAPSULE PO SCH (21:47)
[2017-01-15] MEDS: Acetaminophen 325 MG TABLET PO PRN (21:47)
[2017-01-15] MEDS: traZODone 50 MG TABLET PO PRN (21:47)
[2017-01-16] MEDS: hydrOXYzine pamoate 25 MG CAPSULE PO SCH ×4 (08:38→20:08)
[2017-01-16] MEDS: levETIRAcetam 250 MG TABLET PO SCH ×2 (08:39→20:09)
[2017-01-16] MEDS: carBAMazepine 200 MG TABLET PO SCH ×2 (08:39→20:09)
[2017-01-16] MEDS ORDERED: (Trospium Chloride [Trospium Chloride] 20 MG) PO SCH (09:00)
[2017-01-16] MEDS: Acetaminophen 325 MG TABLET PO PRN (12:26)
--- NOTE | 2017-01-16 14:38 | Psychiatry History & Physical ---
Date of Encounter: 01/16/17 Time of Encounter: 14:00 History of Present Illness Patient Stated Chief Complaint: "I feel depressed and I want to kill myself." Medicare Admission Attestation: For traditional Medicare patients the provided hospital inpatient services are reasonable and necessary and in the case of services not specified as inpatient -only under 42 CFR 419.22 (n), that they are appropriately provided as inpatient services in accordance 42 CFR 412.3. For Critical Access Hospital the patient may reasonably be expected to be discharged or transferred to a hospital within 96 hours after admission to the Critical Access Hospital. Admitted From: Emergency Dept History of Present Illness: Ms. David is a 31 year old female with a history of MR as well as depression and anxiety who presents today after being seen in the ER for increasing depression and suicidal ideations. She was admitted to for psychiatric stabilization. Patient has a previous admission here about 6 weeks ago for similar issues. Patient initially stated she broke up with her boyfriend and was hopeless about the future. She had multiple different ideas on how she would kill herself but no exact plan. She is not the best historian and is unable to say how long she has been taking various medications. She is on multiple medications for mood and depression. She denies sleep issues at this time. She does not have appetite issues. She does feel like nobody cares about her including her boyfriend and her sister. Patient reports that she is called the EMS herself because of suicidal ideations. She continues to have suicidal thoughts today without plan. She denies grandiosity, decreased need for sleep, impulsivity. She denies auditory or visual hallucinations. Patient is not sure if the Paxil helps her with her depressed mood or not. She does state that she sees a doctor through the TV at the local mental health clinic. Past Med Surg Social Fam HX - Past Medical History Medical history: seizures - Past Psychiatric History Psychiatric history: Reports: anxiety, depression, previous psychiatric hospitalization Past psychiatric history details: Patient has previous psychiatric admissions for suicidal ideations. She goes to the mental health clinic for medications. Family psychiatric history: Yes Family Psychiatric History Details: Patient reports her biological sister has depression. Family History of Suicide: Attempted (Biological sister attempted suicide.) - Social History Smoking Status: Former smoker Smokeless Tobacco Status: No Alcohol use: none Drug use: none Occupational status: disabled Recent Out of Country Travel Within the Last 8 Weeks: No Medications & Allergies HydrOXYzine Pamoate [Vistaril] 50 mg PO QID PRN 01/15/17 [History] LevETIRAcetam [Keppra] 500 mg PO BID 01/15/17 [History] Mirtazapine [Remeron] 7.5 mg PO HS 01/15/17 [History] Omeprazole [PriLOSEC] 40 mg PO DAILY 01/15/17 [History] PARoxetine HCl [Paroxetine HCl] 30 mg PO DAILY 01/15/17 [History] Trospium Chloride 20 mg PO BID 01/15/17 [History] carBAMazepine [Tegretol] 200 mg PO BID 01/15/17 [History] risperiDONE [Risperidone] 1 mg PO HS 01/15/17 [History] Allergies No Known Allergies Allergy (Verified 07/13/16 14:29) Review of Systems Constitutional: Denies: fever, chills, weakness, weight change Eyes: Denies: eye pain, vision change Ears, Nose, Throat: Denies: ear pain, throat pain, dental pain, hearing loss, congestion Cardiovascular: Denies: chest pain, palpitations, dyspnea on exertion Respiratory: Denies: cough, dyspnea, wheezes Gastrointestinal: Denies: abdominal pain, nausea, vomiting, diarrhea, constipation Genitourinary male: Denies: urgency, dysuria, frequency, genital lesions Genitourinary female: Denies: urgency, dysuria, frequency, abnormal menses, dyspareunia Musculoskeletal: Denies: joint swelling, joint pain Integumentary: Denies: rash, lesions, pruritus Neurological: Denies: headache, weakness, numbness, memory loss Psychiatric: Reports: depression, anxiety, suicidal ideation, anhedonia, hopelessness, irritability, mood swings. Denies: abnormal sleep pattern, change in appetite Endocrine: Denies: fatigue, heat or cold intolerance Hematologic/Lymphatic: Denies: easy bruising, lymphadenopathy Allergic/Immunologic: Denies: urticaria, itchy eyes Mental Status Exam Patient orientation: Yes Person, Yes Time, Yes Place Level of alertness: Alert Patient appearance: Unkempt, Disheveled Behavior: cooperative, restless Psychomotor activity: Normal Eye contact: Minimal Contact Mood description: Depressed Affect description: congruent with mood, tearful, dysphoric Speech pattern: Slowed Speech volume: Normal Thought process: [place] Thought content: Yes Suicidal ideation, No Homicidal ideation Perceptual disturbances: No Auditory hallucinations, No Visual hallucinations Attention span: Capable of Focused Attention Memory description: Grossly Intact Patient reliability: Reliable Historian Intelligence estimate: Below Average Judgment: Limited Insight: Minimal Exam - HEENT Head exam IM: Present: atraumatic Eye exam IM: Present: normal appearance ENT exam IM: Present: normal exam - Neurological Neurological exam IM: Present: alert, CN II-XII intact - Skin Skin exam IM: Present: dry, warm Results - Vital Signs Vital signs: Temp Pulse Resp BP Pulse Ox 96.8 F L 56 16 102/64 98 01/16/17 09:00 01/16/17 09:00 01/16/17 09:00 01/16/17 09:00 01/15/17 12:30 - Labs Labs: Laboratory Last Values WBC 7.2 K/mcL (4.3-11.1) 01/15/17 01:20 RBC 4.03 M/mcL (3.82-4.97) 01/15/17 01:20 Hgb 12.1 g/dL (11.5-15.4) 01/15/17 01:20 Hct 35.0 % (35.3-44.9) L 01/15/17 01:20 MCV 86.8 fL (83.0-100.0) 01/15/17 01:20 MCH 30.0 pg (28.0-33.3) 01/15/17 01:20 MCHC 34.6 g/dL (31.6-35.5) 01/15/17 01:20 RDW 11.5 % (11.5-14.5) 01/15/17 01:20 Plt Count 191 K/mcL (140-400) 01/15/17 01:20 MPV 8.9 fL (9.4-12.4) L 01/15/17 01:20 Immature Gran % 0.3 % (0-4) 01/15/17 01:20 Seg Neutrophils % 63.0 % 01/15/17 01:20 Lymphocytes % 25.0 % 01/15/17 01:20 Monocytes % 10.1 % 01/15/17 01:20 Eosinophils % 0.8 % 01/15/17 01:20 Basophils % 0.8 % 01/15/17 01:20 Neutrophils # 4.6 K/mcL (1.6-8.9) 01/15/17 01:20 Lymphocytes # 1.8 K/mcL (0.6-4.6) 01/15/17 01:20 Monocytes # 0.7 K/mcL (0.0-1.3) 01/15/17 01:20 Eosinophils # 0.1 K/mcL (0.0-0.6) 01/15/17 01:20 Basophils # 0.1 K/mcL (0.0-0.2) 01/15/17 01:20 Immature Plt Fraction 1.8 % (1.1-6.1) 01/15/17 01:20 Sodium 139 mEq/L (136-145) 01/15/17 01:20 Potassium 3.4 mEq/L (3.5-4.5) L 01/15/17 01:20 Chloride 107 mEq/L (98-109) 01/15/17 01:20 Carbon Dioxide 22 mEq/L (19-29) 01/15/17 01:20 BUN 13 mg/dL (7-20) 01/15/17 01:20 Creatinine 0.77 mg/dL (0.57-1.11) 01/15/17 01:20 Est GFR ( Amer) > 60 (> 60) 01/15/17 01:20 Est GFR (Non-Af Amer) > 60 (> 60) 01/15/17 01:20 BUN/Creatinine Ratio 17 (6-26) 01/15/17 01:20 Glucose 130 mg/dL (70-99) H 01/15/17 01:20 POC Glucose 93 (58-89) H 01/15/17 13:52 Calculated Osmolality 290 (280-300) 01/15/17 01:20 Calcium 9.1 mg/dL (8.6-10.8) 01/15/17 01:20 TSH 2.215 mcIU/mL (0.350-4.840) 01/15/17 01:20 Urine Color Yellow (Yellow) 01/15/17 01:14 Urine Clarity Clear (Clear) 01/15/17 01:14 Urine pH 6.0 pH Units (5.0-8.0) 01/15/17 01:14 Ur Specific [place] 1.007 (1.010-1.025) L 01/15/17 01:14 Urine Protein Negative mg/dL (Neg-Trace) 01/15/17 01:14 Urine Glucose (UA) Normal mg/dL (Normal) 01/15/17 01:14 Urine Ketones Negative mg/dL (Negative) 01/15/17 01:14 Urine Blood Negative (Negative) 01/15/17 01:14 Urine Nitrite Negative (Negative) 01/15/17 01:14 Urine Bilirubin Negative (Negative) 01/15/17 01:14 Urine Urobilinogen Normal mg/dL (Normal) 01/15/17 01:14 Ur Leukocyte Esterase Negative (Negative) 01/15/17 01:14 Urine Test Negative (Negative) 01/15/17 01:14 Salicylates < 5.0 mg/dL (15-30) L 01/15/17 01:20 Urine Opiates Screen Negative ng/mL (Qkowww=339) 01/15/17 01:14 Acetaminophen < 1.0 mcg/mL (10-30) L 01/15/17 01:20 Ur Barbiturates Screen Negative ng/mL ([place]=325) 01/15/17 01:14 Ur Phencyclidine Scrn Negative ng/mL (Cutoff=25) 01/15/17 01:14 Ur Amphetamines Screen Negative ng/mL (Qyjwjn=3539) 01/15/17 01:14 U Benzodiazepines Scrn Negative ng/mL (Sokzav=347) 01/15/17 01:14 Urine Cocaine Screen Negative ng/mL (Cutoff= 300) 01/15/17 01:14 U Marijuana (THC) Screen Negative ng/mL (Cutoff = 50) 01/15/17 01:14 Ethyl Alcohol < 10 mg/dL (0-10) 01/15/17 01:20 Assessment and Plan (1) Major depressive disorder, recurrent Current visit: Yes Status: Acute Plan: Admit inpatient for safety and stabilization, Close observation, Suicide Precautions per unit protocol, Encourage participation in unit milieu, Group Therapy, Monitor sleep, Monitor appetite Additional Plan: Admit to1A for psychiatric stabilization. Continue home meds but increase Paxil to 40 mg by mouth daily. Encourage patient to attend group and unit activities. Monitor behavior and encourage positive coping strategies. We will need to reevaluate patient's disposition as she may not have a place to go on discharge. Qualifiers: Active/Remission status: currently active Major depression episode severity : severe Psychotic features: without psychotic features Qualified Code(s): F33.2 - Major depressive disorder, recurrent severe without psychotic features
[2017-01-16] MEDS: Mirtazapine 15 MG TABLET PO SCH (20:08)
[2017-01-16] MEDS: risperiDONE 1 MG TABLET PO SCH (20:09)
[2017-01-17] MEDS: levETIRAcetam 250 MG TABLET PO SCH ×2 (09:17→20:35)
[2017-01-17] MEDS: hydrOXYzine pamoate 25 MG CAPSULE PO SCH ×4 (09:17→20:35)
[2017-01-17] MEDS: carBAMazepine 200 MG TABLET PO SCH ×2 (09:18→20:35)
--- NOTE | 2017-01-17 10:59 | Psychiatry Progress Note ---
Date of Encounter: 01/17/17 Time of Encounter: 09:50 Subjective Interval history: Rubia is seen today for follow-up. 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 She states her boyfriend knows more about this issue. This provider witnessed part of the episode yesterday and patient did not appear to be having a seizure but was shaking in her bed with her eyes closed. Patient states that she has no control over these episodes. Patient had no loss of bowel or bladder function. She reports continued depressed mood with suicidal ideations. She does state mainly in her room. We discussed the importance of participating in activities here on the unit. Patient tolerated the increase of Prozac but has not noted benefit yet. She denies sleep issues at this time. Review of Systems Psychiatric: Reports: depression, anxiety, suicidal ideation, anhedonia, hopelessness, irritability, mood swings. Denies: abnormal sleep pattern, change in appetite Objective: Exam Patient orientation: Yes Person, Yes Time, Yes Place, Yes Circumstance Level of alertness: Alert Patient appearance: Unkempt Behavior: calm, withdrawn Psychomotor activity: Slowed Eye contact: Diverts Contact Mood description: Depressed Affect description: flat Speech pattern: Slowed Speech volume: Normal Thought process: [place] Thought content: Yes Suicidal ideation Perceptual disturbances: No Auditory hallucinations, No Visual hallucinations Judgment: Limited Insight: Minimal Results - Vital Signs Vital Signs: Temp Pulse Resp BP Pulse Ox 97.4 F L 70 18 89/61 98 01/17/17 09:00 01/17/17 09:00 01/17/17 09:00 01/17/17 09:00 01/15/17 12:30 Assessment and Plan (1) Major depressive disorder, recurrent Current visit: Yes Status: Acute Plan: Continue hospitalization, Close observation, Suicide Precautions per unit protocol, Encourage participation in unit milieu, Group Therapy, Monitor sleep, Monitor appetite Additional Plan: Staff will continue to monitor patient for pseudoseizure episodes. Hold on increasing medication at this time and monitor reaction to increase of Paxil before making further changes as patient is on multiple medications. Encourage patient to attend group and unit activities. Monitor behavior and encourage positive coping strategies. Qualifiers: Active/Remission status: currently active Major depression episode severity : severe Psychotic features: without psychotic features Qualified Code(s): F33.2 - Major depressive disorder, recurrent severe without psychotic features Consult Discharge Plan - Plan Referrals: NO,PCP [Primary Care Provider] -
[2017-01-17] MEDS: risperiDONE 1 MG TABLET PO SCH (20:36)
[2017-01-17] MEDS: Mirtazapine 15 MG TABLET PO SCH (20:36)
[2017-01-18] MEDS: hydrOXYzine pamoate 25 MG CAPSULE PO SCH ×4 (08:45→20:25)
[2017-01-18] MEDS: levETIRAcetam 250 MG TABLET PO SCH ×2 (08:45→20:26)
[2017-01-18] MEDS: carBAMazepine 200 MG TABLET PO SCH ×2 (08:45→20:27)
--- NOTE | 2017-01-18 12:37 | Psychiatry Progress Note ---
Date of Encounter: 01/18/17 Time of Encounter: 12:00 Subjective Interval history: Patient is seen for follow-up. Notes and medication Reviewed. Patient continued to endorse hopelessness and suicidal ideation, she is very concerned about being homeless. She is focused and preoccupied on her boyfriend who rejected her and kicked her out of the house. She exaggerated her disability and and stated that she cannot remember anything and she cannot do anything. She is reported to self isolate in her room despite encouragement to participate in activities and groups. She is compliant with current medications. Review of Systems Psychiatric: Reports: depression, anxiety, suicidal ideation, anhedonia, hopelessness, irritability, mood swings. Denies: abnormal sleep pattern, change in appetite Objective: Exam Patient orientation: Yes Person, Yes Time, Yes Place Level of alertness: Alert Patient appearance: Appropriate, Well Groomed Behavior: calm, cooperative Psychomotor activity: Normal Eye contact: Maintains Eye Contact Mood description: Depressed Affect description: congruent with mood, constricted Speech pattern: Normal rate, Normal rhythm, Normal tone Speech volume: Normal Thought process: Linear, Goal Oriented Thought content: Yes Suicidal ideation, No Homicidal ideation, No Overt delusions Perceptual disturbances: No Auditory hallucinations, No Visual hallucinations Judgment: Fair Insight: Partial Results - Vital Signs Vital Signs: Temp Pulse Resp BP Pulse Ox 98.1 F 66 14 87/57 98 01/18/17 08:48 01/18/17 08:48 01/18/17 08:48 01/18/17 08:48 01/15/17 12:30 Assessment and Plan (1) Major depressive disorder, recurrent Current visit: Yes Status: Acute Plan: Continue hospitalization, Close observation, Suicide Precautions per unit protocol, Encourage participation in unit milieu, Group Therapy, Monitor sleep, Monitor appetite Risks, benefits, side effects, alternatives discussed w/pt: Yes Patient agreeable to treatment: Yes Qualifiers: Active/Remission status: currently active Major depression episode severity : severe Psychotic features: without psychotic features Qualified Code(s): F33.2 - Major depressive disorder, recurrent severe without psychotic features Consult Discharge Plan - Plan Referrals: NO,PCP [Primary Care Provider] -
[2017-01-18] MEDS: risperiDONE 1 MG TABLET PO SCH (20:27)
[2017-01-18] MEDS: Mirtazapine 15 MG TABLET PO SCH (20:28)
[2017-01-19] MEDS: levETIRAcetam 250 MG TABLET PO SCH ×2 (08:55→20:59)
[2017-01-19] MEDS: carBAMazepine 200 MG TABLET PO SCH ×2 (08:55→21:00)
[2017-01-19] MEDS: hydrOXYzine pamoate 25 MG CAPSULE PO SCH ×4 (08:55→21:00)
--- NOTE | 2017-01-19 15:45 | Psychiatry Progress Note ---
Date of Encounter: 01/19/17 Time of Encounter: 15:30 Subjective Interval history: Patient is seen for follow-up. She will continue to endorse suicidal ideation because she is homeless. She is focused on being homeless and demanding to be placed and nursing home social worker is working with her on possible placement in [facility]. She is intrusive to other patients , nursing staff was trying to redirect her. Review of Systems Psychiatric: Reports: depression, anxiety, suicidal ideation, anhedonia, hopelessness, irritability, mood swings. Denies: abnormal sleep pattern, change in appetite Objective: Exam Patient orientation: Yes Person, Yes Time, Yes Place Level of alertness: Alert Patient appearance: Appropriate, Well Groomed Behavior: cooperative, distractible, impulsive Psychomotor activity: Normal Eye contact: Maintains Eye Contact Mood description: Anxious, Labile Affect description: labile, anxious Speech pattern: Normal rate, Normal rhythm, Normal tone Speech volume: Normal Thought process: Circumstantial, Tangential, Disorganized Thought content: Yes Suicidal ideation, No Homicidal ideation, No Overt delusions Perceptual disturbances: No Auditory hallucinations, No Visual hallucinations Judgment: Fair Insight: Partial Results - Vital Signs Vital Signs: Temp Pulse Resp BP Pulse Ox 97.6 F 54 16 90/61 98 01/19/17 08:42 01/19/17 08:42 01/19/17 08:42 01/19/17 08:42 01/15/17 12:30 Assessment and Plan (1) Major depressive disorder, recurrent Current visit: Yes Status: Acute Plan: Continue hospitalization, Close observation, Suicide Precautions per unit protocol, Encourage participation in unit milieu, Group Therapy, Monitor sleep, Monitor appetite Risks, benefits, side effects, alternatives discussed w/pt: Yes Patient agreeable to treatment: Yes Qualifiers: Active/Remission status: currently active Major depression episode severity : severe Psychotic features: without psychotic features Qualified Code(s): F33.2 - Major depressive disorder, recurrent severe without psychotic features Consult Discharge Plan - Plan Referrals: Uli Hernandez [facility] [place] [[place]] - 01/25/17 2:30 pm (The above appointment is with Marissa Mcfadden. You will also see Marylin Ewing on 2016 at 4:00pm.)
[2017-01-19] MEDS: risperiDONE 1 MG TABLET PO SCH (20:59)
[2017-01-19] MEDS: Mirtazapine 15 MG TABLET PO SCH (21:01)
[2017-01-19] MEDS: traZODone 50 MG TABLET PO PRN (21:16)
[2017-01-20] MEDS: hydrOXYzine pamoate 25 MG CAPSULE PO SCH ×2 (10:01→13:00)
[2017-01-20] MEDS: carBAMazepine 200 MG TABLET PO SCH (10:02)
[2017-01-20] MEDS: levETIRAcetam 250 MG TABLET PO SCH (10:02)
[2017-01-20 10:21] VITALS: BP 94/66
--- NOTE | 2017-01-20 14:56 | Discharge Summary ---
Date of Encounter: 01/20/17 Time of Encounter: 14:52 Diagnosis - Discharge Diagnosis (1) Major depressive disorder, recurrent Status: Acute Qualifiers: Active/Remission status: currently active Major depression episode severity : severe Psychotic features: without psychotic features Qualified Code(s): F33.2 - Major depressive disorder, recurrent severe without psychotic features Medications - Discharge Medications Prescriptions: Paroxetine [Paxil] 40 mg PO DAILY #60 tablet HydrOXYzine Pamoate [Vistaril] 50 mg PO QID PRN 01/15/17 [History] LevETIRAcetam [Keppra] 500 mg PO BID 01/15/17 [History] Mirtazapine [Remeron] 7.5 mg PO HS 01/15/17 [History] Omeprazole [PriLOSEC] 40 mg PO DAILY 01/15/17 [History] Trospium Chloride 20 mg PO BID 01/15/17 [History] carBAMazepine [Tegretol] 200 mg PO BID 01/15/17 [History] risperiDONE [Risperidone] 1 mg PO HS 01/15/17 [History] Oxybutynin [Ditropan] 5 mg PO TID tablet 01/20/17 [Rx] Paroxetine [Paxil] 40 mg PO DAILY #60 tablet 01/20/17 [Rx] Allergies No Known Allergies Allergy (Verified 07/13/16 14:29) Provider Date of admission: 01/15/17 17:23 Primary care physician: PCP NO Discharging clinician: Ariel Coughlin Assessment and Plan - Patient/Caregiver Discharge Instructions Activity: resume usual activities as tolerated Diet: regular diet - Follow up Plan Follow up with: Uli Hernandez [facility] [place] [[place]] - 01/25/17 2:30 pm (The above appointment is with Marissa Mcfadden. You will also see Marylin Ewing on 2016 at 4:00pm.) Functional capacity at discharge: independent ambulation Overall status at discharge: Stable Disposition: Home, Self-Care Hospital Course Hospital course: Ms. David is a 31 year old female admitted for depression and suicidal ideation. 2 admission please see H&P On the units patient medications were adjusted, Paxil was increased to 40 mg daily and restarted on all her meds. Patient was self isolating and then she started attending groups and socializing she tolerated her medication and reported improved sleep and appetite. On discharge patient was medically stable , denied suicidal ideation and was looking forward to be placed at [facility]. The treatment team and high school social studies teacher recommended that she gets benefits and support from [facility] board. - Time Spent with Patient Total time spent providing and/or coordinating discharge services: Less than 30 minutes Quality - Multiple Antipsychotics Patient discharged on 2 or more antipsychotic medications: No Procedures - Procedures Procedures: Medication Management, Crisis Stabilization, Supportive Therapy, Group Therapy, Psychoeducational Therapy Mental Status Exam - Mental Status Exam Patient orientation: Yes Person, Yes Time, Yes Place Level of alertness: Alert Patient appearance: Appropriate, Well Groomed Behavior: calm, cooperative Psychomotor activity: Normal Eye contact: Maintains Eye Contact Mood description: Euthymic/stable Affect description: congruent with mood, full range Speech pattern: Normal rate, Normal rhythm, Normal tone Speech Volume: Normal Thought process: Linear, Goal Oriented Thought Content: No Suicidal ideation, No Homicidal ideation, No Overt delusions Perceptual Disturbances: No Auditory hallucinations, No Visual hallucinations Judgment: Limited Insight: Partial
== END 2017-01-20 17:07 | disposition home or self-care (01) | DRG 751 ==
LOC: EMEROO 01:00 → SUATTDRO 17:23 → 1ANU 17:23
PROVIDERS: ADMIT Psychiatry & Neurology Psychiatry; ATTEND Psychiatry & Neurology Psychiatry